=== PATIENT | male | born 1985 | race Two or more races ===

== ENCOUNTER 2021-03-10 10:44 | Emergency (ER) | payer SELFPAY ==
[~2021-03-10] VITALS: Ht 172.7 cm; Wt 65.9 kg
--- NOTE | 2021-03-10 11:39 | NUR ---
C/O CP AT 0700 THIS AM. CURRENTLY: MIDSTERNAL PRESSURE, RT 4TH & 5TH FINGER TINGLING. STATES HEART FELT WEIRD AT 0400 WHEN HE WAS GOING TO WORK. EXPERIENCED RT ARM TINGLING THIS MORNING. TOOK ASA TWO TABLETS AT 0700; MG UNKNOWN. TOOK PEPTO-BISMOL PRIOR TO ASA, VOMITED PEPTO. DENIES NAUSEA CURRENTLY, LIGHTHEADEDNESS, DIZZINESS, CARDIAC HX. PT A&OX4, RESP EVEN & UNLABORED, SPEECH CLEAR, SKIN WNL. BOOK OR SCRIPT EDITOR APPLIED. PT'S MOM IN ROOM.
[2021-03-10 12:24] LABS: BASOPHILS % (AUTO) 1 % (0-1); EOSINOPHILS % (AUTO) 0 % (1-7); LYMPHOCYTES % (AUTO) 12 % (22-44); MEAN CORPUSCULAR HEMOGLOBIN 30.2 pg (27.5-34.5); MEAN CORPUSCULAR HGB CONC 34.7 g/dL (33.2-36.2); MEAN PLATELET VOLUME 8.9 fL (7.4-10.4); MONOCYTES % (AUTO) 4 % (2-9); NEUTROPHILS % (AUTO) 83 % (42-75); PLATELET COUNT 319 x10^3/uL (130-400); RED BLOOD COUNT 5.01 x10^6/uL (4.38-5.82); RED CELL DISTRIBUTION WIDTH 13.9 % (9.4-14.8)
[2021-03-10 12:32] LABS: ANION GAP 5 mmol/L (5-15); CALCIUM 9.1 mg/dL (8.5-10.1); CHLORIDE 107 mmol/L (98-107); CREATININE 0.71 mg/dL (0.7-1.3)
[2021-03-10 12:36] LABS: TROPONIN I < 0.015 ng/mL (0.000-0.045)
--- NOTE | 2021-03-10 13:35 | NUR ---
PT ENDORSED TO SANDRA VELA RN. PT TO BE DC'D
[2021-03-10 14:03] VITALS: BP 135/84
== END 2021-03-10 14:05 | disposition home or self-care (01) ==
LOC: EDBD 10:44 → ED 12:06
DX: R07.89 Other chest pain (principal); F45.8 Other somatoform disorders; R29.0 Tetany; R00.1 Bradycardia, unspecified; F17.200 Nicotine dependence, unspecified, uncomplicated
CPT/HCPCS: 36415; 70450; 71045; 80048; 82040; 84484; 85025; 93005; 99285